=== PATIENT | male | born 2000 | race African-American/Black ===

== ENCOUNTER 2023-07-26 07:46 | Emergency (ER) | payer MEDICAID ==
[2023-07-26 08:12] VITALS: O2SAT 100
[2023-07-26 08:20] LABS: BASOPHILS % (AUTO) 0.5 %; EOSINOPHILS # (AUTO) 0.3 10^3/uL (0.0-0.7); HCT - HEMATOCRIT 42.3 % (42.0-52.0); HGB - HEMOGLOBIN 13.2 g/dL (14.0-18.0); LYMPHOCYTES # (AUTO) 1.2 10^3/uL (1.5-3.5); MEAN CORPUSCULAR HEMOGLOBIN 27.3 pg (27.0-31.0); MEAN CORPUSCULAR HGB CONC 31.2 g/dL (32.0-36.0); MEAN CORPUSCULAR VOLUME 87.6 fL (80.0-94.0); MEAN PLATELET VOLUME 11.4 fL (7.4-11.4); MONOCYTES # (AUTO) 0.4 10^3/uL (0.0-1.0); MONOCYTES % (AUTO) 7.6 %; NEUTROPHILS # (AUTO) 3.5 10^3/uL (1.5-6.6); NEUTROPHILS % (AUTO) 63.7 %; PLT - PLATELET COUNT 209 10^3/uL (130-450); RED BLOOD COUNT 4.83 10^6/uL (4.70-6.10); RED CELL DISTRIBUTION WIDTH 11.9 % (12.0-15.0); WHITE BLOOD COUNT 5.5 x10^3/uL (4.8-10.8)
[2023-07-26 08:34] LABS: ALBUMIN 4.9 g/dL (3.2-5.5); ALBUMIN/GLOBULIN RATIO 1.7 (1.0-2.2); BILIRUBIN,TOTAL 0.7 mg/dL (0.2-1.0); CREATININE 0.9 mg/dL (0.6-1.3); POTASSIUM 3.8 mmol/L (3.5-4.5); TOTAL PROTEIN 7.8 g/dL (6.4-8.9)
[2023-07-26 08:34] LABS: BILIRUBIN,URINE SMALL (NEGATIVE); CLARITY,URINE CLEAR (CLEAR); GLUCOSE, URINE (UA) NEGATIVE (NEGATIVE); KETONES,URINE (UA) NEGATIVE (NEGATIVE); LEUKOCYTE ESTERASE, URINE NEGATIVE (NEGATIVE); NITRITE,URINE NEGATIVE (NEGATIVE); OCCULT BLOOD,URINE NEGATIVE (NEGATIVE); PROTEIN,URINE TRACE mg/dL (NEGATIVE); UROBILINOGEN,URINE 2 E.U./dL (NORMAL)
--- NOTE | 2023-07-26 08:39 | ED Physician Documentation ---
PD HPI ABD PAIN - Stated complaint Stated Complaint: BACK PX/ABD PX - Chief complaint Chief Complaint: Back Pain - History obtained from History obtained from: Patient - History of Present Illness Timing - onset: Last night, Yesterday Timing - details: Abrupt onset, Still present (severe pain upper/mida bd radiating to back after drinking water (had eaten couple hours earlier). Pain stayed intense for hour or so, then lessened but has not gone away. Staying at mild/to moderate undulating level.) Pain level max: 9 Pain level now: 3 Quality: Aching, Sharp, Pain Location: Epigastric, Periumbilical Radiation: Lower back Worsened by: Other (has not had anything to eat since onset of the pain.). No: Moving, Breathing Associated symptoms: Nausea, Loss of appetite. No: Fever, Diarrhea, Constipation, Chest pain Similar symptoms before: Has not had sx before Review of Systems Constitutional: denies: Fever, Chills Nose: denies: Rhinorrhea / runny nose, Congestion Throat: denies: Sore throat Respiratory: denies: Cough PD PAST MEDICAL HISTORY - Past Medical History Past Medical History: No Cardiovascular: None Respiratory: None Neuro: None Endocrine/Autoimmune: None GI: None : None HEENT: None Psych: None Musculoskeletal: None Derm: None - Past Surgical History Past Surgical History: No - Present Medications Home Medications: Ambulatory Orders Medication Instructions Recorded Confirmed Famotidine [Pepcid] 20 mg PO DAILY #20 tablet 07/26/23 HYDROcod/ACETAM 5/325 [[place] 5/325] 1 ea PO Q6H PRN #15 tablet 07/26/23 Lidocaine Viscous 2% [Xylocaine 5 ml PO Q4H PRN #100 ml 07/26/23 Viscous 2%] Ondansetron Odt [Zofran] 4 mg TL Q6H PRN #10 tablet 07/26/23 - Allergies Allergies/Adverse Reactions: Allergies Allergy/AdvReac Type Severity Reaction Status Date / Time No Known Drug Allergies Allergy Verified 07/26/23 08:00 - Social History Does the pt smoke?: No Smoking Status: Never smoker Does the pt drink ETOH?: Yes Does the pt have substance abuse?: No - Immunizations Immunizations are current?: Yes - POLST Patient has POLST: No PD ED PE NORMAL - Vitals Vital signs reviewed: Yes - General General: Alert and oriented X 3, Well developed/nourished - Cardiac Cardiac: RRR, No murmur - Respiratory Respiratory: No respiratory distress, Clear bilaterally - Abdomen Abdomen: Normal bowel sounds, Soft, Non distended, No organomegaly, Other (tender periumbilical to epigastric area with guarding and mild percussion tenderness. No rebound noted. No CVA tenderness. ) Results - Vitals Vitals: Oxygen O2 Source Room air - Labs Labs: Laboratory Tests 07/26/23 07/26/23 07/26/23 08:15 08:15 08:20 WBC 5.5 RBC 4.83 Hgb 13.2 L Hct 42.3 MCV 87.6 MCH 27.3 MCHC 31.2 L RDW 11.9 L Plt Count 209 MPV 11.4 Neut # (Auto) 3.5 Lymph # (Auto) 1.2 L Parker # (Auto) 0.4 Eos # (Auto) 0.3 Baso # (Auto) 0.0 Absolute Nucleated RBC 0.00 Nucleated RBC % 0.0 Sodium 140 Potassium 3.8 Chloride 106 Carbon Dioxide 30 Anion Gap 4.0 L BUN 14 Creatinine 0.9 Estimated GFR (MDRD) 105 Glucose 100 Calcium 10.0 Total Bilirubin 0.7 AST 81 H ALT 38 Alkaline Phosphatase 80 Total Protein 7.8 Albumin 4.9 Globulin 2.9 Albumin/Globulin Ratio 1.7 Lipase 15 Urine Color YELLOW Urine Clarity CLEAR Urine pH 7.0 Ur Specific [place] 1.025 Urine Protein TRACE Urine Glucose (UA) NEGATIVE Urine Ketones NEGATIVE Urine Occult Blood NEGATIVE Urine Nitrite NEGATIVE Urine Bilirubin SMALL H Urine Urobilinogen 2 H Ur Leukocyte Esterase NEGATIVE Ur Microscopic Review NOT INDICATED Urine Culture Comments NOT INDICATED - Rads (name of study) abd/pelvic CT Relevant Findings:: Prelim report reviewed (normal appendix. Normal liver/pancreas. There are gallstones noteed without wall thickening nor surrounding fluid. Nomral appendix. ), EMP independent interpretation of test PD Medical Decision Making - ED course Complexity details: reviewed results (CT showing gallstones without wall thickening nor edema. Consider incidental finding. Symptoms could be from gastritis/ulcer and would be more c/w then the persistence of the pain without local GB inflammation. Lipase and LFTs normal, no not apparent pancreatitis, hepatic process, and imaging nl. ), re-evaluated patient (pain improved with Toradol and nausea less with Zofran. 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 GI cocktail had some improvement but not complete.), considered differential (pain upper abd/epigastic, worse with eating. Consider gastritis/ulcer. Imaging does show gallstones without cholycystitis. COuld be incidental finding or his pains may be biliary colic. Has consistent pain to some degree for couple days, so I would expect some findings on GB (wall thickening/etc). ), d/w patient ED course: Some elements sound biliary (location, abruptness, referred area) but labs and CT not showing acute CBD blockage nor cholecystitis. Some elements sound gastritis but the abruptness is unusual. Can treat with [id number] and antacids, but also to have meds for biliary colic. F/U surgery if some persistent or recurrent. Return to ER if not considerably improved/resolved today/tomorrow, sooner if worse. Departure - Departure Disposition: 01 Home, Self Care Clinical Impression: Acute upper abdominal pain, Gallstones without obstruction of gallbladder Condition: Stable Record reviewed to determine appropriate education?: Yes Instructions: ED Abdominal Pain Gallstone Poss, ED Gastritis Follow-Up: [facility] [Provider Group] [facility] [Provider Group] Prescriptions: HYDROcod/ACETAM 5/325 [[place] 5/325] 1 ea PO Q6H PRN #15 tablet PRN Reason: Pain Famotidine [Pepcid] 20 mg PO DAILY #20 tablet Lidocaine Viscous 2% [Xylocaine Viscous 2%] 5 ml PO Q4H PRN #100 ml PRN Reason: Pain Ondansetron Odt [Zofran] 4 mg TL Q6H PRN #10 tablet PRN Reason: Nausea / Vomiting Comments: Your basic blood count and also blood tests that correspond to pancreas and liver are normal. Blood sugar and electrolytes are good as well. Your CT scan showed some gallstones within the gallbladder but no signs of wall thickening or inflammation. Considerations for your pain are gallbladder spasms as it tries to squeeze out bile from the gallbladder and the stone causes irritation or temporary blockage. However the problem is that the presence of gallstones could be incidental and not related to any pain per se. Other consideration would be an irritation of the stomach such as gastritis. This would be treated with some antacids and acid reducing medicines. I would avoid anti-inflammatories such as naproxen or ibuprofen as this could further irritate the stomach. Use Tylenol every 4-6 hours if needed for pain. Add ondansetron if needed for nausea and then hydrocodone/acetaminophen if needed for worse pain. I sent these prescriptions to the [facility] in [place]. If you are feeling improving over the next several days and the medications are doing adequately, then continue with and improving and I would be more inclined to think of an irritated stomach such as gastritis s the cause and see if fully resolves over several days. Gallbladder spasms and colic tend to be more episodic. If your pain improves through the day now but you get repeat episodes in the near future, then call the surgery office for an appointment to discuss whether the gallstones could be the problem. They typically will get you in within a week or so if a follow up from the ER. If you have consistent pain not responding adequately enough to the medications prescribed, then return to the ER or check the walk-in clinic. I am prescribing a short course of narcotic pain medication for you. These are potentially dangerous and addictive medications that should be used carefully. These medications may constipate you. Take an [id number] stool softener such as docusate twice daily with plenty of water while taking these medications. If you go 24 hours without a bowel movement, take [id number] MiraLAX, per package instructions. Do not drink or drive while taking these medications. If you received narcotic or sedating medications while in the emergency department do not drive for 24 hours. Store this medication in a safe, secure place and out of reach of children. It is a violation of federal law to give or sell this medication to another person or to use in a manner other than prescribed. The ED will not refill narcotic prescriptions, including prescriptions lost or stolen. You can dispose of unwanted medications at the [facility]'s office or at several pharmacies such as [facility]. Discharge Date/Time: 07/26/23 12:05
[2023-07-26] MEDS ORDERED: iohexoL-300 100 ML VIAL ONE (09:07)
[2023-07-26] MEDS: SODIUM CHLORIDE 0.9% 1,000 ML IV STA (09:25)
[2023-07-26] MEDS: ONDANSETRON 4 MG/2 ML VIAL IVP STA (09:26)
[2023-07-26] MEDS: KETOROLAC 15 MG/ML VIAL IVP STA (09:26)
[2023-07-26] MEDS: iohexoL-300 100 ML VIAL IVP ONE (09:27)
[2023-07-26] MEDS: HYDROmorphone 0.5 MG/0.5 ML SYRINGE IVP STA (09:34)
--- NOTE | 2023-07-26 09:54 | CT Report ---
PROCEDURE: Abdomen/Pelvis W INDICATIONS: upper abd pain abrupt 3 am today CONTRAST: 100ml omni 300 TECHNIQUE: After the administration of intravenous contrast, a CT scan of the abdomen and pelvis was performed. Images were recorded and evaluated at appropriate window settings. Reformats: coronal and sagittal. F or radiation dose reduction, the following was used: automated exposure control, adjustment of mA and /or kV according to patient size. COMPARISON: None. FINDINGS: Image quality: Diagnostic. Lower chest: Unremarkable. Liver: No solid mass. Gallbladder and biliary tree: Cholelithiasis without wall thickening. No biliary dilation. Spleen: No splenomegaly. Pancreas: No pancreatic ductal dilation. Adrenals: No adrenal nodule. Kidneys and ureters: No hydronephrosis. No renal cystic lesion which requires follow up. No solid mas s. Stomach, bowel and peritoneum: No bowel distension. No pathologic free fluid. Normal appendix. Small bowel loops and stomach are unremarkable. Lymph nodes: No central or retroperitoneal adenopathy. Vessels: No infrarenal aortic aneurysm. PELVIS Reproductive organs: Unremarkable. Bladder: No abnormal wall thickening, accounting for underdistention. Pelvic lymph nodes: No pelvic adenopathy by size criteria. Bones: No aggressive osseous abnormality. Transitional spinal anatomy is incidentally noted. Other: No significant ventral or inguinal hernia. IMPRESSION: 1.Cholelithiasis without signs of acute cholecystitis. 2.Otherwise, no acute abnormality identified in the abdomen or pelvis. Normal appendix. Reviewed by: Kyle Sim MD on 07/26/2023 9:53 AM PDT Approved by: Kyle Sim MD on 07/26/2023 9:53 AM PDT Station ID: [id number]
[2023-07-26] MEDS: FAMOTIDINE 20 MG TABLET PO STA (11:08)
[2023-07-26] MEDS: MAG HYDROX/AL HYDROX/SIMETH 30 ML UDC PO STA (11:08)
[2023-07-26] MEDS: LIDOCAINE VISCOUS 2% 15 ML UDC MM STA (11:08)
[2023-07-26 12:11] VITALS: BP 123/82
== END 2023-07-26 12:05 | disposition home or self-care (01) ==
LOC: ED 07:46
DX: R10.10 Upper abdominal pain, unspecified (principal); K80.20 Calculus of gallbladder without cholecystitis without obstruction
CPT/HCPCS: 36415; 74177; 80053; 81003; 83690; 85025; 96374; 99284; A9270; Q9967; 81001; 87086